=== PATIENT | male | born 1965 | race Caucasian/White ===

== ENCOUNTER 2017-03-24 11:53 | Emergency (ER) | payer OTHER ==
[2017-03-24 12:14] VITALS: BP 147/99; PULSE 85; TEMP 98; BMI 30.8
--- NOTE | 2017-03-24 12:51 | PDOC ---
Post Exposure HPI - General Chief Complaint: Non EmpBld/Body Flud Exposure Stated Complaint: ASBESTOS EXPOSURE Time Seen by Provider: 03/24/17 12:26 History Source: Patient Exam Limitations: No Limitations - History of Present Illness Initial Comments: 03/24/17 12:49 came for evaluation of exposure to aspestos. 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 Patient denies any cough, fevers, shortness of breath currently however all of department coming for evaluation and documentation of this exposure. 03/24/17 16:15 Timing: other (multiple days) Past History - Travel Traveled outside of the country in the last 30 days: No Close contact w/someone who was outside of country & ill: No - Past Medical History Allergies/Adverse Reactions: Allergies No Known Allergies Allergy (Verified 03/24/17 12:10) Home Medications: Ambulatory Orders NK [No Known Home Medication] 03/24/17 General: Yes: no pertinent history, cancer, other (thyroid cancer) - Social History Smoking Status: Never smoked Review of Systems - Review of Systems Able to Perform ROS?: Yes Is the patient limited Citizen Of [place] proficient: Yes Constitutional: Yes: See HPI. No: Symptoms Reported, Chills, Fever, Malaise HEENTM: Yes: See HPI. No: Symptoms Reported, Eye Pain, Nose Pain, Nose Congestion Respiratory: Yes: See HPI. No: Symptoms reported, Cough, SOB with Exertion, Wheezing Musculoskeletal: Yes: See HPI. No: Symptoms Reported Integumentary: Yes: See HPI. No: Symptoms Reported All Other Systems: Reviewed and Negative *Physical Exam - Vital Signs Last Vital Signs Temp Pulse Resp BP Pulse Ox 98 F 85 19 147/99 95 03/24/17 12:10 03/24/17 12:10 03/24/17 12:10 03/24/17 12:10 03/24/17 12:10 - Physical Exam General Appearance: Yes: Appropriately Dressed, Apparent Distress, Mild Distress , Moderate Distress HEENT: positive: MARJAN, Normal ENT Inspection, TMs Normal, Pharynx Normal Neck: positive: Supple. negative: Tender Respiratory/Chest: positive: Lungs Clear, Normal Breath Sounds Cardiovascular: positive: Regular Rate Gastrointestinal/Abdominal: positive: Normal Bowel Sounds, Soft. 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
== END 2017-03-24 13:00 | disposition home or self-care (01) ==
LOC: JERFT 11:53
DX: Z77.090 Contact with and (suspected) exposure to asbestos (principal); X58.XXXA Exposure to other specified factors, initial encounter; Y93.89 Activity, other specified; Y92.89 Other specified places as the place of occurrence of the external cause; Y99.0 Civilian activity done for income or pay
CPT/HCPCS: 99281-25